=== PATIENT | female | born 1940 | race African-American/Black ===

== ENCOUNTER 2016-11-11 15:11 | Outpatient (RCR) | payer MEDICARE ==
--- OUTSIDE RECORDS SUMMARY | 2016-08-14 09:39 | XMS REPORT | Continuity of Care Document ---
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 Name Role Phone LOPEZ DONOHUE MD PCP Insurance Providers Payer Name Policy Number Subscriber Name Relationship [employer] Gold Choice [id number] Ely Tompkins 19 Self / Same As Patient Advance Directives Directive Response Recorded Date/Time Advance Directives No 02/01/15 7:45am Health Care Power of Rehabilitation Services Aide No 02/01/15 7:45am Organ Donor Yes 02/01/15 7:45am Resuscitation Status Full Code 02/01/15 7:45am Problems Medical Problems Problem Onset Date Status Fracture of tibia AND fibula Unknown Active Medications Medication Dose Route Sig Days/Qty Instructions Order Date Discontinued Date Status Salmeterol Xinafoate/Fluticasone 2 Puff IH TWICE A DAY 2 PUFFS Active Montelukast Sodium 10 Mg PO DAILY 08/30/10 01/04/11 Discontinued Fluticasone Propionate 2 Sprays NS DAILY 08/30/10 Active Donna-3 Fatty Acids/Fish Oil 1 Each PO DAILY 08/30/10 01/29/15 Discontinued Cholecalciferol 1,000 Unit PO DAILY 08/30/10 Active Multivitamins 1 Tab PO DAILY 08/30/10 Active Vitamin B Complex 1 Cap PO DAILY 08/30/10 01/29/15 Discontinued Ascorbic Acid 250 Mg PO DAILY 08/30/10 01/29/15 Discontinued Lisinopril (Zestril) 1 Each PO DAILY 08/30/10 01/04/11 Discontinued Cetirizine Hcl 10 Mg PO DAILY 08/30/10 Active Albuterol 2 Two [place] IH NEEDED 08/30/10 Active Omeprazole 20 Mg PO DAILY 08/30/10 Active Prednisone 50 Mg PO DAILY 5 Days 01/04/11 02/09/12 Discontinued Potassium Chloride 1 Each PO DAILY 02/09/12 01/29/15 Discontinued Lisinopril 10 Mg PO DAILY 02/09/12 01/29/15 Discontinued Acetaminophen/Hydrocodone Bitart 1-2 Each PO EVERY 6 HOURS PRN PAIN 30 Qty 10/01/13 01/29/15 Discontinued Tramadol Hcl 100 Mg PO EVERY 12 HOURS For Pain 30 Qty 02/01/15 Active Social History Social History Problem Response Recorded Date/Time Alcohol Use Denies Use 02/01/2015 7:45am Recreational Drug Use No 02/01/2015 7:45am Recent Foreign Travel No 10/01/2013 10:38am Sexually Transmitted Disease No 01/29/2015 12:44pm HIV/AIDS No 01/29/2015 12:44pm Smoking Status Never a Smoker 02/01/2015 7:47am Query Response Start Date Stop Date Smoking Status Never a Smoker Hospital Discharge Instructions No hospital discharge instructions. Plan of Care No plan of care. Functional Status Query Response Date Recorded Patient Orientation Person Place Time Situation February 01, 2015 2:57pm Allergies, Adverse Reactions, Alerts Allergen Type Severity Reaction Status Last Updated Codeine Allergy Unknown N/V Active 02/01/15 azithromycin ([id number]) Allergy Mild HIVES Active 01/04/11 procaine ([id number]) Allergy Unknown RASH Active 02/01/15 strawberry ([id number]) Allergy Unknown RASH Active 02/01/15 Immunizations Name Given Type Date of Pneumonia Vaccine 08/02/13 Historical Date of Influenza Vaccine 08/02/13 Historical Vital Signs Acute Vital Signs Vital Response Date/Time Temperature (Fahrenheit) 97.7 degrees F (97.6 - 99.5) Temperature (Calculated Celsius) 36.25727 degrees C (36.4 - 37.5) Temperature Source Temporal Pulse Rate (adult) 64 bpm (60 - 90) Respiratory Rate 16 bpm (12 - 24) O2 Sat by Pulse Oximetry 95 % (88 - 100) Blood Pressure 178/91 mm Hg Pain Pain Intensity 1 Height (Feet) 5 feet Height (Inches) 2.00 inches Height (Calculated Centimeters) 157.546925 cm Weight (Pounds) 168 pounds Weight (Calculated Grams) 66194.519 gm Weight (Calculated Kilograms) 76.801646 kilograms Calculated BMI 27.95 Results No known relevant diagnostic tests, laboratory data and/or discharge summary. Procedures Procedure Status Date Provider(s) BX BREAST 1ST LESION US IMAG completed 01/18/15 SYLVIA SAMUEL MD Lumpectomy of breast with sentinel node biopsy completed 02/01/15 REBECA DUPREE MD Encounters Encounter Location Date/Time Registered Surgical Day [facility] 02/01/15 6:54am Registered Clinic [facility] 01/29/15 6:06am Registered Clinic [facility] 01/18/15 12:34pm Registered Clinic [facility] 01/10/15 8:25am
[2016-08-14 09:48] LABS: BASOPHILS % (AUTO) 1 % (0-10); EOSINOPHILS # (AUTO) 0.2 10^3/uL (0.0-0.3); EOSINOPHILS % (AUTO) 4 % (0-10); LYMPHOCYTES # (AUTO) 1.1 X 10^3 (1.0-4.0); LYMPHOCYTES % (AUTO) 16 % (12-44); MEAN CORPUSCULAR HEMOGLOBIN 29 PG (25-34); MEAN CORPUSCULAR HGB CONC 33 G/DL (32-36); MEAN CORPUSCULAR VOLUME 87 FL (80-99); MEAN PLATELET VOLUME 9.3 FL (7.4-10.4); MONOCYTES # (AUTO) 0.4 X 10^3 (0.0-1.0); MONOCYTES % (AUTO) 6 % (0-12); NEUTROPHILS % (AUTO) 74 % (42-75); PLATELET COUNT 254 10^3/uL (130-400); RED BLOOD COUNT 4.13 10^6/uL (4.35-5.85); RED CELL DISTRIBUTION WIDTH 13.1 % (10.0-14.5); WHITE BLOOD COUNT 6.8 10^3/uL (4.3-11.0)
[2016-08-14 10:58] LABS: ALANINE AMINOTRANSFERASE 17 U/L (0-55); ALBUMIN 3.8 G/DL (3.2-4.5); ANION GAP 11 MMOL/L (5-14); ASPARTATE AMINO TRANSFERASE 17 U/L (5-34); BILIRUBIN,TOTAL 0.4 MG/DL (0.1-1.0); BLOOD UREA NITROGEN 10 MG/DL (7-18); BUN/CREATININE RATIO 13; CALCIUM 8.8 MG/DL (8.5-10.1); CARBON DIOXIDE 24 MMOL/L (21-32); CHLORIDE 108 MMOL/L (98-107); CREATININE SERUM 0.78 MG/DL (0.60-1.30); GFR ESTIMATED > 60; GLUCOSE 220 MG/DL (70-105); POTASSIUM 3.6 MMOL/L (3.6-5.0); SODIUM 143 MMOL/L (135-145); TOTAL PROTEIN 6.9 G/DL (6.4-8.2)
[2016-11-10 10:05] LABS: BASOPHILS % (AUTO) 0 % (0-10); EOSINOPHILS # (AUTO) 0.4 10^3/uL (0.0-0.3); EOSINOPHILS % (AUTO) 5 % (0-10); LYMPHOCYTES # (AUTO) 1.4 X 10^3 (1.0-4.0); LYMPHOCYTES % (AUTO) 19 % (12-44); MEAN CORPUSCULAR HEMOGLOBIN 29 PG (25-34); MEAN CORPUSCULAR HGB CONC 33 G/DL (32-36); MEAN CORPUSCULAR VOLUME 86 FL (80-99); MEAN PLATELET VOLUME 9.3 FL (7.4-10.4); MONOCYTES # (AUTO) 0.5 X 10^3 (0.0-1.0); MONOCYTES % (AUTO) 7 % (0-12); NEUTROPHILS # (AUTO) 4.9 X 10^3 (1.8-7.8); NEUTROPHILS % (AUTO) 68 % (42-75); PLATELET COUNT 240 10^3/uL (130-400); RED BLOOD COUNT 4.35 10^6/uL (4.35-5.85); RED CELL DISTRIBUTION WIDTH 13.1 % (10.0-14.5); WHITE BLOOD COUNT 7.1 10^3/uL (4.3-11.0)
[2016-11-10 10:31] LABS: ALANINE AMINOTRANSFERASE 15 U/L (0-55); ALBUMIN 3.8 G/DL (3.2-4.5); ANION GAP 9 MMOL/L (5-14); ASPARTATE AMINO TRANSFERASE 16 U/L (5-34); BILIRUBIN,TOTAL 0.5 MG/DL (0.1-1.0); BLOOD UREA NITROGEN 11 MG/DL (7-18); BUN/CREATININE RATIO 14; CALCIUM 8.7 MG/DL (8.5-10.1); CARBON DIOXIDE 25 MMOL/L (21-32); CHLORIDE 108 MMOL/L (98-107); CREATININE SERUM 0.79 MG/DL (0.60-1.30); GFR ESTIMATED > 60; GLUCOSE 136 MG/DL (70-105); POTASSIUM 3.4 MMOL/L (3.6-5.0); SODIUM 142 MMOL/L (135-145); TOTAL PROTEIN 6.9 G/DL (6.4-8.2)
[~2016-11-11 15:11] MED LIST: ACHD5005 PO; ALBU17AE3 IH; C250T PO; CETI10CA PO; CHOL10003 PO; FLUT12AE4 IH; FLUT16SP22 NS; HYDR-1231 PO; LISI10TA PO; LISI20TA PO; LISIN; MNTL10T PO; MULT-608 PO; OMEG1CAP51 PO; OMEP20TA2 PO; POTA20PA3 PO; PRD50T PO; TRAM-21 PO; VITA1CAP59 PO
== END 2016-11-12 | disposition home or self-care (01) ==
LOC: ONC 15:11
PROVIDERS: ATTEND Internal Medicine Hematology & Oncology
DX: D05.92 Unspecified type of carcinoma in situ of left breast (principal); D50.0 Iron deficiency anemia secondary to blood loss (chronic); Z85.3 Personal history of malignant neoplasm of breast; Z90.11 Acquired absence of right breast and nipple; Z79.899 Other long term (current) drug therapy; Z92.21 Personal history of antineoplastic chemotherapy; Z92.3 Personal history of irradiation
CPT/HCPCS: 36415; 80053; 82728; 85025; 99213

== ENCOUNTER 2017-05-07 15:15 | Outpatient (RCR) | payer MEDICARE ==
[2017-05-06 11:47] LABS: BASOPHILS % (AUTO) 0 % (0-10); EOSINOPHILS # (AUTO) 0.5 10^3/uL (0.0-0.3); EOSINOPHILS % (AUTO) 6 % (0-10); LYMPHOCYTES # (AUTO) 1.7 X 10^3 (1.0-4.0); LYMPHOCYTES % (AUTO) 23 % (12-44); MEAN CORPUSCULAR HEMOGLOBIN 28 PG (25-34); MEAN CORPUSCULAR HGB CONC 33 G/DL (32-36); MEAN CORPUSCULAR VOLUME 87 FL (80-99); MEAN PLATELET VOLUME 9.1 FL (7.4-10.4); MONOCYTES # (AUTO) 0.6 X 10^3 (0.0-1.0); MONOCYTES % (AUTO) 8 % (0-12); NEUTROPHILS # (AUTO) 4.5 X 10^3 (1.8-7.8); NEUTROPHILS % (AUTO) 62 % (42-75); PLATELET COUNT 263 10^3/uL (130-400); RED BLOOD COUNT 4.01 10^6/uL (4.35-5.85); RED CELL DISTRIBUTION WIDTH 13.3 % (10.0-14.5); WHITE BLOOD COUNT 7.3 10^3/uL (4.3-11.0)
[2017-05-06 12:44] LABS: ALANINE AMINOTRANSFERASE 12 U/L (0-55); ALBUMIN 3.7 GM/DL (3.2-4.5); ANION GAP 7 MMOL/L (5-14); ASPARTATE AMINO TRANSFERASE 16 U/L (5-34); BILIRUBIN,TOTAL 0.4 MG/DL (0.1-1.0); BLOOD UREA NITROGEN 21 MG/DL (7-18); BUN/CREATININE RATIO 25; CALCIUM 8.8 MG/DL (8.5-10.1); CARBON DIOXIDE 27 MMOL/L (21-32); CHLORIDE 109 MMOL/L (98-107); CREATININE SERUM 0.83 MG/DL (0.60-1.30); GFR ESTIMATED > 60; GLUCOSE 82 MG/DL (70-105); POTASSIUM 3.4 MMOL/L (3.6-5.0); SODIUM 143 MMOL/L (135-145); TOTAL PROTEIN 7.2 GM/DL (6.4-8.2)
== END 2017-08-01 | disposition home or self-care (01) ==
LOC: ONC 15:15
PROVIDERS: ATTEND Internal Medicine Hematology & Oncology
DX: D05.92 Unspecified type of carcinoma in situ of left breast (principal); D50.0 Iron deficiency anemia secondary to blood loss (chronic); Z85.3 Personal history of malignant neoplasm of breast; Z90.11 Acquired absence of right breast and nipple; Z79.899 Other long term (current) drug therapy; Z92.21 Personal history of antineoplastic chemotherapy; Z92.3 Personal history of irradiation
CPT/HCPCS: 36415; 80053; 82728; 85025; 99213

== ENCOUNTER → 2017-10-22 | Outpatient (CLI) | payer MEDICARE ==
--- NOTE | 2017-10-23 09:36 | Diagnostic Imaging Report ---
Left breast screening mammogram with tomography evaluation. CAD is utilized. Indication screening exam. The patient had a right mastectomy 2009 for breast cancer. Comparison 10/21/2016. Findings: The left breast is composed of suggested dense parenchyma which may decrease mammographic sensitivity. Surgical clips in the medial aspect of the left breast is noted. The patient has had a right mastectomy in 2009. Allowing for technique and positional differences, no suspicious change is seen. IMPRESSION: No significant change. ACR BI-RADS Category 2: Benign findings. Result letter will be mailed to the patient. Note: At least 10% of breast cancer is not imaged by mammography. Dictated by: Dictated on workstation # [id number]
== END ==
LOC: RAD 09:12
PROVIDERS: ATTEND Nurse Practitioner Adult Health
DX: Z12.31 Encounter for screening mammogram for malignant neoplasm of breast (principal); C50.211 Malignant neoplasm of upper-inner quadrant of right female breast

== ENCOUNTER 2017-11-16 09:01 | Outpatient (RCR) | payer MEDICARE ==
[2017-11-09 10:00] LABS: HEMOGLOBIN 10.9 G/DL (11.5-16.0); MEAN CORPUSCULAR HEMOGLOBIN 28 PG (25-34); RED BLOOD COUNT 3.87 10^6/uL (4.35-5.85); WHITE BLOOD COUNT 7.4 10^3/uL (4.3-11.0)
[2017-11-09 10:01] LABS: BASOPHILS % (AUTO) 0 % (0-10); EOSINOPHILS % (AUTO) 5 % (0-10); HEMATOCRIT 35 % (35-52); LYMPHOCYTES % (AUTO) 18 % (12-44); MEAN CORPUSCULAR HGB CONC 31 G/DL (32-36); MEAN CORPUSCULAR VOLUME 91 FL (80-99); MEAN PLATELET VOLUME 10.1 FL (7.4-10.4); MONOCYTES % (AUTO) 5 % (0-12); NEUTROPHILS % (AUTO) 72 % (42-75); PLATELET COUNT 233 10^3/uL (130-400); RED CELL DISTRIBUTION WIDTH 13.2 % (10.0-14.5)
[2017-11-09 10:02] LABS: EOSINOPHILS # (AUTO) 0.4 10^3/uL (0.0-0.3); LYMPHOCYTES # (AUTO) 1.3 X 10^3 (1.0-4.0); MONOCYTES # (AUTO) 0.4 X 10^3 (0.0-1.0); NEUTROPHILS # (AUTO) 5.3 X 10^3 (1.8-7.8)
[2017-11-09 10:08] LABS: ALANINE AMINOTRANSFERASE 16 U/L (0-55); ALBUMIN 3.5 GM/DL (3.2-4.5); ALKALINE PHOSPHATASE 87 U/L (40-136); BILIRUBIN,TOTAL 0.6 MG/DL (0.1-1.0); BUN/CREATININE RATIO 18; CALCIUM 8.8 MG/DL (8.5-10.1); CARBON DIOXIDE 27 MMOL/L (21-32); CHLORIDE 106 MMOL/L (98-107); CREATININE SERUM 0.85 MG/DL (0.60-1.30); GFR ESTIMATED > 60; GLUCOSE 171 MG/DL (70-105); POTASSIUM 3.3 MMOL/L (3.6-5.0); SODIUM 143 MMOL/L (135-145); TOTAL PROTEIN 7.1 GM/DL (6.4-8.2)
== END 2018-02-07 | disposition home or self-care (01) ==
LOC: ONC 09:01
PROVIDERS: ATTEND Internal Medicine Hematology & Oncology
DX: D05.92 Unspecified type of carcinoma in situ of left breast (principal); D50.0 Iron deficiency anemia secondary to blood loss (chronic); Z85.3 Personal history of malignant neoplasm of breast; Z90.11 Acquired absence of right breast and nipple; Z79.899 Other long term (current) drug therapy; Z92.21 Personal history of antineoplastic chemotherapy; Z92.3 Personal history of irradiation
CPT/HCPCS: 80053; 82728; 85025; 99213

== ENCOUNTER → 2018-05-03 | Outpatient (CLI) | payer MEDICARE | LOC: LAB 09:36 | PROVIDERS: ATTEND Internal Medicine | DX: E88.81 Metabolic syndrome and other insulin resistance (principal) | CPT/HCPCS: 36415; 83036 ==

== ENCOUNTER 2018-05-10 09:04 | Outpatient (RCR) | payer MEDICARE ==
[2018-05-03 09:56] LABS: BASOPHILS % (AUTO) 1 % (0-10); EOSINOPHILS # (AUTO) 0.3 10^3/uL (0.0-0.3); EOSINOPHILS % (AUTO) 4 % (0-10); HEMATOCRIT 34 % (35-52); HEMOGLOBIN 11.5 G/DL (11.5-16.0); LYMPHOCYTES # (AUTO) 1.5 X 10^3 (1.0-4.0); LYMPHOCYTES % (AUTO) 19 % (12-44); MEAN CORPUSCULAR HEMOGLOBIN 29 PG (25-34); MEAN CORPUSCULAR HGB CONC 33 G/DL (32-36); MEAN CORPUSCULAR VOLUME 88 FL (80-99); MONOCYTES # (AUTO) 0.5 X 10^3 (0.0-1.0); MONOCYTES % (AUTO) 6 % (0-12); NEUTROPHILS # (AUTO) 5.5 X 10^3 (1.8-7.8); NEUTROPHILS % (AUTO) 71 % (42-75); PLATELET COUNT 247 10^3/uL (130-400); RED BLOOD COUNT 3.92 10^6/uL (4.35-5.85); RED CELL DISTRIBUTION WIDTH 13.1 % (10.0-14.5); WHITE BLOOD COUNT 7.8 10^3/uL (4.3-11.0)
[2018-05-03 10:09] LABS: ALANINE AMINOTRANSFERASE 15 U/L (0-55); ALBUMIN 3.9 GM/DL (3.2-4.5); ALKALINE PHOSPHATASE 89 U/L (40-136); BILIRUBIN,TOTAL 0.5 MG/DL (0.1-1.0); BUN/CREATININE RATIO 20; CALCIUM 9.1 MG/DL (8.5-10.1); CARBON DIOXIDE 24 MMOL/L (21-32); CHLORIDE 110 MMOL/L (98-107); CREATININE SERUM 0.83 MG/DL (0.60-1.30); GFR ESTIMATED > 60; GLUCOSE 111 MG/DL (70-105); POTASSIUM 3.7 MMOL/L (3.6-5.0); SODIUM 143 MMOL/L (135-145); TOTAL PROTEIN 7.4 GM/DL (6.4-8.2)
== END 2018-06-01 | disposition home or self-care (01) ==
LOC: ONC 09:04
PROVIDERS: ATTEND Internal Medicine Hematology & Oncology
DX: D05.92 Unspecified type of carcinoma in situ of left breast (principal); D50.0 Iron deficiency anemia secondary to blood loss (chronic); Z85.3 Personal history of malignant neoplasm of breast; Z90.11 Acquired absence of right breast and nipple; Z79.899 Other long term (current) drug therapy; Z92.21 Personal history of antineoplastic chemotherapy; Z92.3 Personal history of irradiation
CPT/HCPCS: 36415; 80053; 82728; 85025; 99213

== ENCOUNTER → 2018-10-28 | Outpatient (CLI) | payer MEDICARE ==
--- NOTE | 2018-10-28 12:39 | Diagnostic Imaging Report ---
INDICATION: Routine screening. Comparison is made with prior left mammogram from 10/22/2017 and 10/21/2016. 2-D and 3-D unilateral left screening mammography was performed with CAD. Scattered fibroglandular densities are identified bilaterally. Surgical clips in medial left breast are again noted. The parenchymal pattern appears to be stable. No mass or malignant appearing microcalcifications are seen. Left axilla is unremarkable. Impression: BI-RADS category 2 No mammographic features suspicious for malignancy are identified. ACR BI-RADS Category 2: Benign findings. Result letter will be mailed to the patient. Note: At least 10% of breast cancer is not imaged by mammography. Dictated by: Dictated on workstation # [id number]
== END ==
LOC: RAD 07:16
PROVIDERS: ATTEND Nurse Practitioner Adult Health
DX: Z12.31 Encounter for screening mammogram for malignant neoplasm of breast (principal); C50.211 Malignant neoplasm of upper-inner quadrant of right female breast

== ENCOUNTER → 2018-11-10 | Outpatient (CLI) | payer MEDICARE | LOC: LAB 09:37 | PROVIDERS: ATTEND Internal Medicine | DX: E11.65 Type 2 diabetes mellitus with hyperglycemia (principal) | CPT/HCPCS: 36415; 83036 ==

== ENCOUNTER 2018-11-11 09:03 | Outpatient (RCR) | payer MEDICARE ==
[2018-11-10 09:56] LABS: BASOPHILS % (AUTO) 0 % (0-10); EOSINOPHILS # (AUTO) 0.2 10^3/uL (0.0-0.3); EOSINOPHILS % (AUTO) 4 % (0-10); HEMATOCRIT 33 % (35-52); HEMOGLOBIN 10.7 G/DL (11.5-16.0); LYMPHOCYTES # (AUTO) 1.4 X 10^3 (1.0-4.0); LYMPHOCYTES % (AUTO) 21 % (12-44); MEAN CORPUSCULAR HEMOGLOBIN 28 PG (25-34); MEAN CORPUSCULAR HGB CONC 32 G/DL (32-36); MEAN CORPUSCULAR VOLUME 88 FL (80-99); MEAN PLATELET VOLUME 10.1 FL (7.4-10.4); MONOCYTES # (AUTO) 0.5 X 10^3 (0.0-1.0); MONOCYTES % (AUTO) 7 % (0-12); NEUTROPHILS # (AUTO) 4.7 X 10^3 (1.8-7.8); NEUTROPHILS % (AUTO) 68 % (42-75); PLATELET COUNT 261 10^3/uL (130-400); RED CELL DISTRIBUTION WIDTH 12.9 % (10.0-14.5); WHITE BLOOD COUNT 6.8 10^3/uL (4.3-11.0)
[2018-11-10 10:24] LABS: ALANINE AMINOTRANSFERASE 15 U/L (0-55); ALBUMIN 3.8 GM/DL (3.2-4.5); ALKALINE PHOSPHATASE 90 U/L (40-136); BILIRUBIN,TOTAL 0.5 MG/DL (0.1-1.0); BUN/CREATININE RATIO 24; CALCIUM 9.3 MG/DL (8.5-10.1); CARBON DIOXIDE 27 MMOL/L (21-32); CHLORIDE 107 MMOL/L (98-107); CREATININE SERUM 0.88 MG/DL (0.60-1.30); GFR ESTIMATED > 60; GLUCOSE 111 MG/DL (70-105); POTASSIUM 3.8 MMOL/L (3.6-5.0); SODIUM 142 MMOL/L (135-145); TOTAL PROTEIN 7.3 GM/DL (6.4-8.2)
== END 2019-02-08 | disposition home or self-care (01) ==
LOC: ONC 09:03
PROVIDERS: ATTEND Internal Medicine Hematology & Oncology
DX: D05.92 Unspecified type of carcinoma in situ of left breast (principal); D50.0 Iron deficiency anemia secondary to blood loss (chronic); Z85.3 Personal history of malignant neoplasm of breast; Z90.11 Acquired absence of right breast and nipple; Z79.899 Other long term (current) drug therapy; Z92.21 Personal history of antineoplastic chemotherapy; Z92.3 Personal history of irradiation
CPT/HCPCS: 36415; 80053; 82728; 83540; 85025; 99213

== ENCOUNTER 2019-05-11 08:33 | Outpatient (RCR) | payer MEDICARE ==
[2019-05-11 09:22] LABS: BASOPHILS % (AUTO) 0 % (0-10); EOSINOPHILS # (AUTO) 0.4 10^3/uL (0.0-0.3); EOSINOPHILS % (AUTO) 7 % (0-10); HEMATOCRIT 34 % (35-52); LYMPHOCYTES # (AUTO) 1.3 X 10^3 (1.0-4.0); LYMPHOCYTES % (AUTO) 20 % (12-44); MEAN CORPUSCULAR HEMOGLOBIN 28 PG (25-34); MEAN CORPUSCULAR HGB CONC 32 G/DL (32-36); MEAN CORPUSCULAR VOLUME 88 FL (80-99); MEAN PLATELET VOLUME 9.6 FL (7.4-10.4); MONOCYTES # (AUTO) 0.4 X 10^3 (0.0-1.0); MONOCYTES % (AUTO) 6 % (0-12); NEUTROPHILS # (AUTO) 4.5 X 10^3 (1.8-7.8); NEUTROPHILS % (AUTO) 68 % (42-75); PLATELET COUNT 258 10^3/uL (130-400); RED CELL DISTRIBUTION WIDTH 12.9 % (10.0-14.5); WHITE BLOOD COUNT 6.7 10^3/uL (4.3-11.0)
[2019-05-11 09:40] LABS: ALANINE AMINOTRANSFERASE 14 U/L (0-55); ALBUMIN 3.7 GM/DL (3.2-4.5); ALKALINE PHOSPHATASE 94 U/L (40-136); BILIRUBIN,TOTAL 0.5 MG/DL (0.1-1.0); BUN/CREATININE RATIO 19; CALCIUM 9.1 MG/DL (8.5-10.1); CARBON DIOXIDE 25 MMOL/L (21-32); CHLORIDE 107 MMOL/L (98-107); CREATININE SERUM 0.89 MG/DL (0.60-1.30); GFR ESTIMATED > 60; GLUCOSE 112 MG/DL (70-105); POTASSIUM 4.2 MMOL/L (3.6-5.0); SODIUM 142 MMOL/L (135-145)
== END 2019-08-09 | disposition home or self-care (01) ==
LOC: ONC 08:33
PROVIDERS: ATTEND Internal Medicine Hematology & Oncology
DX: D05.92 Unspecified type of carcinoma in situ of left breast (principal); D50.0 Iron deficiency anemia secondary to blood loss (chronic); Z85.3 Personal history of malignant neoplasm of breast; Z90.11 Acquired absence of right breast and nipple; Z79.899 Other long term (current) drug therapy; Z92.21 Personal history of antineoplastic chemotherapy; Z92.3 Personal history of irradiation
CPT/HCPCS: 36415; 80053; 82728; 85025; 99213

== ENCOUNTER → 2019-05-11 | Outpatient (CLI) | payer MEDICARE ==
[2019-05-11 09:41] LABS: CHOLESTEROL 234 MG/DL (< 200); HDL CHOLESTEROL 64 MG/DL (40-60); TRIGLYCERIDES 100 MG/DL (<150); VLDL CHOLESTEROL 20 MG/DL (5-40)
== END ==
LOC: LAB 08:31
PROVIDERS: ATTEND Internal Medicine
DX: E11.9 Type 2 diabetes mellitus without complications (principal); I10 Essential (primary) hypertension
CPT/HCPCS: 36415; 80061; 83036

== ENCOUNTER 2019-10-28 12:44 | Outpatient (RCR) | payer MEDICARE ==
[2019-10-28 13:12] LABS: BASOPHILS % (AUTO) 0 % (0-10); EOSINOPHILS # (AUTO) 0.4 10^3/uL (0.0-0.3); EOSINOPHILS % (AUTO) 5 % (0-10); HEMATOCRIT 34 % (35-52); HEMOGLOBIN 11.2 G/DL (11.5-16.0); LYMPHOCYTES # (AUTO) 1.7 X 10^3 (1.0-4.0); LYMPHOCYTES % (AUTO) 21 % (12-44); MEAN CORPUSCULAR HEMOGLOBIN 29 PG (25-34); MEAN CORPUSCULAR HGB CONC 33 G/DL (32-36); MEAN CORPUSCULAR VOLUME 88 FL (80-99); MEAN PLATELET VOLUME 9.8 FL (7.4-10.4); MONOCYTES # (AUTO) 0.5 X 10^3 (0.0-1.0); MONOCYTES % (AUTO) 6 % (0-12); NEUTROPHILS # (AUTO) 5.6 X 10^3 (1.8-7.8); NEUTROPHILS % (AUTO) 69 % (42-75); PLATELET COUNT 257 10^3/uL (130-400); RED CELL DISTRIBUTION WIDTH 13.2 % (10.0-14.5); WHITE BLOOD COUNT 8.1 10^3/uL (4.3-11.0)
[2019-10-28 13:36] LABS: ALANINE AMINOTRANSFERASE 14 U/L (0-55); ALBUMIN 3.9 GM/DL (3.2-4.5); ALKALINE PHOSPHATASE 95 U/L (40-136); BILIRUBIN,TOTAL 0.4 MG/DL (0.1-1.0); BUN/CREATININE RATIO 24; CALCIUM 8.4 MG/DL (8.5-10.1); CARBON DIOXIDE 21 MMOL/L (21-32); CHLORIDE 109 MMOL/L (98-107); CREATININE SERUM 0.93 MG/DL (0.60-1.30); GFR ESTIMATED > 60; GLUCOSE 131 MG/DL (70-105); POTASSIUM 3.4 MMOL/L (3.6-5.0); SODIUM 141 MMOL/L (135-145); TOTAL PROTEIN 7.4 GM/DL (6.4-8.2)
== END 2019-11-09 08:51 | disposition home or self-care (01) ==
LOC: ONC 12:44
PROVIDERS: ATTEND Internal Medicine Hematology & Oncology
DX: D05.10 Intraductal carcinoma in situ of unspecified breast (principal); D50.0 Iron deficiency anemia secondary to blood loss (chronic)
CPT/HCPCS: 80053; 82728; 85025

== ENCOUNTER → 2019-10-28 | Outpatient (CLI) | payer MEDICARE ==
[2019-10-28 13:37] LABS: CHOLESTEROL 238 MG/DL (< 200); HDL CHOLESTEROL 60 MG/DL (40-60); TRIGLYCERIDES 271 MG/DL (<150); VLDL CHOLESTEROL 54 MG/DL (5-40)
== END ==
LOC: LAB 12:55
PROVIDERS: ATTEND Internal Medicine
DX: Z13.6 Encounter for screening for cardiovascular disorders (principal); E11.9 Type 2 diabetes mellitus without complications
CPT/HCPCS: 36415; 80061; 83036

== ENCOUNTER → 2019-10-31 | Outpatient (CLI) | payer MEDICARE ==
--- NOTE | 2019-10-31 13:26 | Diagnostic Imaging Report ---
INDICATION: Routine screening. COMPARISON: 10/28/2018 and 10/22/2017. TECHNIQUE: 2D and 3D unilateral left screening mammography was performed with CAD. FINDINGS: The left breast is heterogeneously dense, limiting the sensitivity of mammography. Post-therapeutic changes in the medial left breast are again noted with multiple surgical clips present. No mass or malignant appearing microcalcifications are seen. The left axilla is unremarkable. IMPRESSION: No mammographic features suspicious for malignancy are identified. ACR BI-RADS Category 2: Benign findings. Result letter will be mailed to the patient. Note: At least 10% of breast cancer is not imaged by mammography. Dictated by: Dictated on workstation # [id number]
== END ==
LOC: RAD 09:01
PROVIDERS: ATTEND Nurse Practitioner Adult Health
DX: Z12.31 Encounter for screening mammogram for malignant neoplasm of breast (principal); Z85.3 Personal history of malignant neoplasm of breast

== ENCOUNTER → 2019-11-09 | Outpatient (CLI) | payer MEDICARE | LOC: ONC 08:56 | PROVIDERS: ATTEND Internal Medicine Hematology & Oncology | DX: D50.0 Iron deficiency anemia secondary to blood loss (chronic) (principal); D05.12 Intraductal carcinoma in situ of left breast; C50.211 Malignant neoplasm of upper-inner quadrant of right female breast; I10 Essential (primary) hypertension; J45.909 Unspecified asthma, uncomplicated | CPT/HCPCS: 99213 ==

== ENCOUNTER → 2020-05-01 | Outpatient (CLI) | payer MEDICARE ==
[2020-05-01 09:31] LABS: BASOPHILS % (AUTO) 0 % (0-10); EOSINOPHILS # (AUTO) 0.4 10^3/uL (0.0-0.3); EOSINOPHILS % (AUTO) 6 % (0-10); HEMATOCRIT 33 % (35-52); HEMOGLOBIN 10.7 G/DL (11.5-16.0); LYMPHOCYTES # (AUTO) 1.5 X 10^3 (1.0-4.0); LYMPHOCYTES % (AUTO) 20 % (12-44); MEAN CORPUSCULAR HEMOGLOBIN 29 PG (25-34); MEAN CORPUSCULAR HGB CONC 33 G/DL (32-36); MEAN CORPUSCULAR VOLUME 88 FL (80-99); MEAN PLATELET VOLUME 9.5 FL (7.4-10.4); MONOCYTES # (AUTO) 0.5 X 10^3 (0.0-1.0); MONOCYTES % (AUTO) 7 % (0-12); NEUTROPHILS # (AUTO) 4.8 X 10^3 (1.8-7.8); NEUTROPHILS % (AUTO) 67 % (42-75); PLATELET COUNT 258 10^3/uL (130-400); RED CELL DISTRIBUTION WIDTH 12.9 % (10.0-14.5); WHITE BLOOD COUNT 7.2 10^3/uL (4.3-11.0)
[2020-05-01 09:50] LABS: ALANINE AMINOTRANSFERASE 14 U/L (0-55); ALBUMIN 3.7 GM/DL (3.2-4.5); ALKALINE PHOSPHATASE 94 U/L (40-136); BILIRUBIN,TOTAL 0.4 MG/DL (0.1-1.0); BUN/CREATININE RATIO 22; CALCIUM 8.8 MG/DL (8.5-10.1); CARBON DIOXIDE 22 MMOL/L (21-32); CHLORIDE 107 MMOL/L (98-107); CREATININE SERUM 0.99 MG/DL (0.60-1.30); GFR ESTIMATED > 60; GLUCOSE 104 MG/DL (70-105); POTASSIUM 4.1 MMOL/L (3.6-5.0); SODIUM 139 MMOL/L (135-145); TOTAL PROTEIN 7.4 GM/DL (6.4-8.2)
== END ==
LOC: ONC 09:06
PROVIDERS: ATTEND Internal Medicine Hematology & Oncology
DX: D50.0 Iron deficiency anemia secondary to blood loss (chronic) (principal); D05.12 Intraductal carcinoma in situ of left breast
CPT/HCPCS: 80053; 82728; 85025

== ENCOUNTER → 2020-05-07 | Outpatient (CLI) | payer MEDICARE ==
[2020-05-07 10:26] LABS: CHOLESTEROL 247 MG/DL (< 200); HDL CHOLESTEROL 57 MG/DL (40-60); TRIGLYCERIDES 159 MG/DL (<150); VLDL CHOLESTEROL 32 MG/DL (5-40)
== END ==
LOC: LAB 05-01 09:19
PROVIDERS: ATTEND Nurse Practitioner Family
DX: E11.9 Type 2 diabetes mellitus without complications (principal); I10 Essential (primary) hypertension
CPT/HCPCS: 36415; 80061; 83036

== ENCOUNTER → 2020-05-07 | Outpatient (CLI) | payer MEDICARE | LOC: ONC 09:01 | PROVIDERS: ATTEND Internal Medicine Hematology & Oncology | DX: D05.12 Intraductal carcinoma in situ of left breast (principal); D50.0 Iron deficiency anemia secondary to blood loss (chronic); I10 Essential (primary) hypertension; Z85.3 Personal history of malignant neoplasm of breast; Z92.21 Personal history of antineoplastic chemotherapy; Z92.3 Personal history of irradiation; Z90.11 Acquired absence of right breast and nipple | CPT/HCPCS: 99213 ==

== ENCOUNTER → 2020-11-15 | Outpatient (CLI) | payer MEDICARE ==
--- NOTE | 2020-11-15 14:46 | Diagnostic Imaging Report ---
EXAM: Left screening mammogram COMPARISON: This study was compared to the prior exams of 10/31/2019, 10/28/2018, 10/22/2017 and 10/21/2016. By history, the patient underwent a right mastectomy for carcinoma in 2009. 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 The postsurgical changes involving the medial aspect of the left breast seen on the prior studies are again evident and no different. There is no sign of a current malignancy in this region. The fibroglandular tissue in the left breast is heterogeneously dense. This does limit the sensitivity of this exam. There is no primary or secondary sign of malignancy noted. IMPRESSION: The postsurgical changes involving the left breast appear stable. There is no evidence for malignancy. ACR category 1. ACR BI-RADS Category 1: Negative. Result letter will be mailed to the patient. Note: At least 10% of breast cancer is not imaged by mammography. Dictated by: Dictated on workstation # [id number]
== END ==
LOC: RAD 11:35
PROVIDERS: ATTEND Nurse Practitioner Adult Health
DX: Z12.31 Encounter for screening mammogram for malignant neoplasm of breast (principal)
CPT/HCPCS: 77063

== ENCOUNTER 2020-11-21 09:15 | Outpatient (RCR) | payer MEDICARE ==
[2020-11-06 11:40] LABS: BASOPHILS # (AUTO) 0.1 10^3/uL (0.0-0.1); BASOPHILS % (AUTO) 1 % (0-10); EOSINOPHILS # (AUTO) 0.3 10^3/uL (0.0-0.3); EOSINOPHILS % (AUTO) 4 % (0-10); HEMATOCRIT 33 % (35-52); HEMOGLOBIN 10.5 g/dL (11.5-16.0); LYMPHOCYTES # (AUTO) 1.6 10^3/uL (1.0-4.0); LYMPHOCYTES % (AUTO) 21 % (12-44); MEAN CORPUSCULAR HEMOGLOBIN 28 pg (25-34); MEAN CORPUSCULAR HGB CONC 32 g/dL (32-36); MEAN CORPUSCULAR VOLUME 90 fL (80-99); MEAN PLATELET VOLUME 9.9 fL (9.0-12.2); MONOCYTES # (AUTO) 0.5 10^3/uL (0.0-1.0); MONOCYTES % (AUTO) 7 % (0-12); NEUTROPHILS # (AUTO) 5.1 10^3/uL (1.8-7.8); NEUTROPHILS % (AUTO) 66 % (42-75); PLATELET COUNT 275 10^3/uL (130-400); WHITE BLOOD COUNT 7.7 10^3/uL (4.3-11.0)
[2020-11-06 12:02] LABS: ALBUMIN 3.7 GM/DL (3.2-4.5); BILIRUBIN,TOTAL 0.4 MG/DL (0.1-1.0); CALCIUM 8.7 MG/DL (8.5-10.1); CREATININE SERUM 1.37 MG/DL (0.60-1.30); POTASSIUM 3.3 MMOL/L (3.6-5.0); TOTAL PROTEIN 7.9 GM/DL (6.4-8.2)
[2020-11-21 09:39] LABS: BUN/CREATININE RATIO 15; CALCIUM 8.8 MG/DL (8.5-10.1); CARBON DIOXIDE 24 MMOL/L (21-32); CHLORIDE 108 MMOL/L (98-107); CREATININE SERUM 1.03 MG/DL (0.60-1.30); GFR ESTIMATED > 60; GLUCOSE 118 MG/DL (70-105); POTASSIUM 3.9 MMOL/L (3.6-5.0); SODIUM 142 MMOL/L (135-145)
== END 2021-02-04 | disposition home or self-care (01) ==
LOC: ONC 09:15
PROVIDERS: ATTEND Internal Medicine Hematology & Oncology
DX: C50.212 Malignant neoplasm of upper-inner quadrant of left female breast (principal); Z86.2 Personal history of diseases of the blood and blood-forming organs and certain disorders involving the immune mechanism; Z90.11 Acquired absence of right breast and nipple
CPT/HCPCS: 80048; 80053; 82728; 85025; 99213

== ENCOUNTER → 2021-05-13 | Outpatient (CLI) | payer MEDICARE ==
[2021-05-13 09:00] LABS: BASOPHILS % (AUTO) 0 % (0-10); EOSINOPHILS # (AUTO) 0.3 10^3/uL (0.0-0.3); EOSINOPHILS % (AUTO) 4 % (0-10); HEMATOCRIT 32 % (35-52); HEMOGLOBIN 10.3 g/dL (11.5-16.0); LYMPHOCYTES # (AUTO) 1.2 10^3/uL (1.0-4.0); LYMPHOCYTES % (AUTO) 17 % (12-44); MEAN CORPUSCULAR HEMOGLOBIN 29 pg (25-34); MEAN CORPUSCULAR HGB CONC 32 g/dL (32-36); MEAN CORPUSCULAR VOLUME 90 fL (80-99); MEAN PLATELET VOLUME 9.7 fL (9.0-12.2); MONOCYTES # (AUTO) 0.4 10^3/uL (0.0-1.0); MONOCYTES % (AUTO) 6 % (0-12); NEUTROPHILS # (AUTO) 5.4 10^3/uL (1.8-7.8); NEUTROPHILS % (AUTO) 73 % (42-75); PLATELET COUNT 246 10^3/uL (130-400); WHITE BLOOD COUNT 7.4 10^3/uL (4.3-11.0)
[2021-05-13 09:19] LABS: ALBUMIN 3.7 GM/DL (3.2-4.5); BILIRUBIN,TOTAL 0.4 MG/DL (0.1-1.0); CALCIUM 9.2 MG/DL (8.5-10.1); CREATININE SERUM 1.15 MG/DL (0.60-1.30); TOTAL PROTEIN 7.3 GM/DL (6.4-8.2)
== END ==
LOC: EDSTATUS 02-05 11:27 → ONC 08:36
PROVIDERS: ATTEND Internal Medicine Hematology & Oncology
DX: D05.12 Intraductal carcinoma in situ of left breast (principal); C50.211 Malignant neoplasm of upper-inner quadrant of right female breast; D50.0 Iron deficiency anemia secondary to blood loss (chronic); I00 Rheumatic fever without heart involvement; J45.909 Unspecified asthma, uncomplicated; Z92.3 Personal history of irradiation
CPT/HCPCS: 80053; 82728; 85025; G0463; 99213

== ENCOUNTER → 2021-11-21 | Outpatient (CLI) | payer MEDICARE ==
--- NOTE | 2021-11-21 13:17 | Diagnostic Imaging Report ---
INDICATION: Routine screening. COMPARISON is made with prior mammograms from 11/15/2020 and 10/31/2019. Unilateral left 2-D and 3-D screening mammography was performed with CAD. Scattered fibroglandular densities in the left breast are noted. Post-therapeutic changes in the medial left breast are noted where there are multiple surgical clips present. Calcifications in the left breast appear stable. No mass or malignant-appearing microcalcifications are seen. Left axilla is unremarkable. IMPRESSION: BI-RADS Category 2 No mammographic features suspicious for malignancy are identified. ACR BI-RADS Category 2: Benign findings. Result letter will be mailed to the patient. Note: At least 10% of breast cancer is not imaged by mammography. Dictated by: Dictated on workstation # [id number]
== END ==
LOC: RAD 09:00
PROVIDERS: ATTEND Internal Medicine Hematology & Oncology
DX: Z12.31 Encounter for screening mammogram for malignant neoplasm of breast (principal)
CPT/HCPCS: 77063

== ENCOUNTER → 2022-07-30 | Outpatient (CLI) | payer MEDICARE ==
[~2022-07-30] MED LIST changes: +CATHETER FLUSH 10 ML SYR IV PRN; +HOLD METFORMIN - RECEIVED CONTRAST 20 ML VIAL IV SCH; +IOHEXOL 350 MG/ML 100 ML (OMNIPAQUE 350) VIAL IV ONE; +NS 100 ML (IVPB) BAG IV ONE
--- NOTE | 2022-07-30 09:58 | Diagnostic Imaging Report ---
PROCEDURE: CT head with and without contrast. TECHNIQUE: Multiple contiguous axial images were obtained through the brain before and after the administration of intravenous contrast. Auto Exposure Controls were utilized during the CT exam to meet ALARA standards for radiation dose reduction. INDICATION: Acute confusion in a patient with breast cancer. FINDINGS: The ventricles and sulci are within normal limits for size. There is no evidence of intracranial hemorrhage. There is no abnormal mass effect or shift of the midline structures and no abnormal contrast enhancement is seen. Note is made of hyperostosis frontalis interna without other focal lytic or sclerotic calvarial lesion. There is extensive mucosal thickening throughout the paranasal sinuses. IMPRESSION: No acute intracranial abnormality or evidence of metastatic disease in the head. There is extensive chronic appearing pansinusitis. Dictated by: Dictated on workstation # [id number]
== END ==
LOC: RAD 09:02
PROVIDERS: ATTEND Internal Medicine
DX: R41.0 Disorientation, unspecified (principal); C50.919 Malignant neoplasm of unspecified site of unspecified female breast
CPT/HCPCS: 70470

== ENCOUNTER → 2022-12-22 | Outpatient (CLI) | payer MEDICARE ==
[~2022-12-22] MED LIST changes: -CATHETER FLUSH 10 ML SYR IV PRN; -HOLD METFORMIN - RECEIVED CONTRAST 20 ML VIAL IV SCH; -IOHEXOL 350 MG/ML 100 ML (OMNIPAQUE 350) VIAL IV ONE; -NS 100 ML (IVPB) BAG IV ONE
[2022-12-22 11:29] LABS: CALCIUM 8.7 MG/DL (8.5-10.1); CREATININE SERUM 1.21 MG/DL (0.60-1.30); POTASSIUM 3.6 MMOL/L (3.6-5.0)
== END ==
LOC: LAB 10:30
PROVIDERS: ATTEND Internal Medicine
DX: E11.9 Type 2 diabetes mellitus without complications (principal)
CPT/HCPCS: 36415; 80048; 83036

== ENCOUNTER → 2023-05-15 | Outpatient (CLI) | payer MEDICARE ==
--- NOTE | 2023-05-15 08:17 | Diagnostic Imaging Report ---
PROCEDURE: CT head without contrast. TECHNIQUE: Multiple contiguous axial images were obtained through the brain without the use of intravenous contrast. Auto Exposure Controls were utilized during the CT exam to meet ALARA standards for radiation dose reduction. INDICATION: Memory loss COMPARISON: CT of the head on 07/30/2022. FINDINGS: No acute intracranial hemorrhage. The stephens-white matter differentiation is preserved. No intracranial mass or fluid collection. No midline shift. The ventricles and cortical sulci are normal. Minimal age-appropriate hypoattenuation within the periventricular and subcortical white matter. No significant volume loss. Subarachnoid spaces are maintained. The sella is normal. There is mucosal thickening within the bilateral maxillary, sphenoid, ethmoid, and frontal sinuses with associated mucoperiosteal reaction. The globes and orbits are normal. Skull is intact. IMPRESSION: No acute intracranial hemorrhage. No large vascular territory beach-white loss. No intracranial mass, midline shift, or hydrocephalus.. Diffuse pansinus mucosal thickening with associated mucoperiosteal reaction concerning for sinusitis. Dictated by: Dictated on workstation # [id number]
== END ==
LOC: RAD 05-14 11:48
PROVIDERS: ATTEND Internal Medicine
DX: J34.9 Unspecified disorder of nose and nasal sinuses (principal); R41.3 Other amnesia; Z85.3 Personal history of malignant neoplasm of breast
CPT/HCPCS: 70450

== ENCOUNTER 2023-08-30 00:20 | Emergency (ER) | payer MEDICARE ==
[~2023-08-30] VITALS: Ht 157.5 cm; Wt 61.2 kg
--- NOTE | 2023-08-30 00:42 | ED Respiratory ---
General Chief Complaint: Respiratory Problems Stated Complaint: ASTHMA ATTACH Source: patient (LIMITED HISTORIAN--SON STATES SHE HAS SOME DEMENTIA), family (SON) History of Present Illness Date Seen by Provider: Aug 30, 2023 Time Seen by Provider: 00:30 Initial Comments PT ARRIVES VIA POV FROM HOME WITH SON--PT LIVES ALONE C/O ASTHMA PT STATES SHE USES ALBUTEROL INHALER EVERY DAY, AND RAN OUT ON Thursday08/28/23. SHE STATES SHE CALLED DR. DONOHUE'S OFFICE ON THURSDAY BECAUSE SHE DID NOT HAVE ANY REFILLS, AND THEN THE PHARMACY WAS CLOSED BY THE TIME SHE GOT THERE ON THURSDAY SHE HAS NOT ATTEMPTED TO GO THERE SINCE THEN NO FEVER NO CHEST PAIN NO OTHER SYMPTOMS PT DOES NOT SMOKE NO KNOWN ALLERGEN EXPOSURE, DOES NOT HAVE ANIMALS SHE STATES SHE DOES NOT USE ANY OTHER INHALERS OR NEBULIZER--ONLY ALBUTEROL INHALER, AND DOES NOT HAVE A SPACER PCP: DR. DONOHUE Allergies and Home Medications Allergies Coded Allergies: azithromycin (Unverified Allergy, Mild, HIVES, 01/04/11) codeine (Unverified Allergy, Unknown, N/V, 02/01/15) procaine (Unverified Allergy, Unknown, RASH, 02/01/15) strawberry (Unverified Allergy, Unknown, RASH, 02/01/15) Patient Home Medication List Home Medication List Reviewed: Yes Albuterol (Proventil) 17 Gm Inh, 2 SPRAY IH NEEDED, (Reported) Entered as Reported by: RAKESH MIXON on 08/30/10 155 Budesonide (Pulmicort Flexhaler) 180 Mcg Aer.pow.ba, 180 MCG IH BID Prescribed by: NISREEN CADET on 08/30/23117 Cetirizine Hcl (Zyrtec) 10 Mg Capsule, 10 MG PO DAILY, (Reported) Entered as Reported by: RAKESH MIXON on 08/30/10 155 Cholecalciferol (Vitamin D) 1,000 Unit Tablet, 1,000 UNIT PO DAILY, (Reported) Entered as Reported by: RAKESH MIXON on 08/30/101542 Dexamethasone (Dexamethasone) 6 Mg Tablet, 6 MG PO DAILY Prescribed by: NISREEN CADET on 08/30/23117 Fluticasone Propionate (Flonase Nasal Steen) 16 Gm Naspr, 2 SPRAYS NS DAILY, (Reported) Entered as Reported by: RAKESH MIXON on 08/30/10 1543 Fluticasone/Salmeterol (Advair Hfa 115-21 Mcg Inhaler) 12 Gm Aer.w.adap, 2 PUFF IH BID, (Reported) Entered as Reported by: RAKESH MIXON on 08/30/10 1543 Hydrocodone Bit/Acetaminophen (Hydrocodone-Apap 5-325 Tablet) 1 Tab Tablet, 1-2 TAB PO Q6H PRN for PAIN Prescribed by: SUMMER BAH on 03/03/15 1525 Multivitamins (Multiple Vitamin) 1 Tab Tablet, 1 TAB PO DAILY, (Reported) Entered as Reported by: RAKESH MIXON on 08/30/10 1543 Omeprazole (Omeprazole) 20 Mg Tablet.dr, 20 MG PO DAILY, (Reported) Entered as Reported by: RAKESH MIXON on 08/30/10 1555 Tramadol Hcl (Ultram) 50 Mg Tablet, 100 MG PO Q12H Prescribed by: LESLEY SHI on 02/01/15 1342 Review of Systems Review of Systems Constitutional: no symptoms reported EENTM: no symptoms reported Respiratory: see HPI, short of breath, wheezing Cardiovascular: no symptoms reported Gastrointestinal: no symptoms reported Genitourinary: no symptoms reported Musculoskeletal: no symptoms reported Skin: no symptoms reported Psychiatric/Neurological: No Symptoms Reported Hematologic/Lymphatic: No Symptoms Reported Immunological/Allergic: no symptoms reported Past Ebekgdq-Swhlcm-Nigkel Hx Patient Social History Tobacco Use?: No Smoking Status: Never a Smoker Use of E-Cig and/or Vaping dev: No Use of E-Cig and/or Vaping Andrea: Never a User Substance use?: No Alcohol Use?: No Past Medical History Surgery/Hospitalization HX: ASTHMA Surgeries: Yes (MODIFIED RIGHT MASTECTOMY; LEFT BREAST LUMPECTOMY) Breast Respiratory: Yes Asthma Cardiac: No Neurological: Yes Dementia Reproductive Disorders: No Female 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 oz. 76.430832wc; BMI Method:Stated General Appearance: WD/WN, no apparent distress, thin HEENT: normal ENT inspection Neck: normal inspection Respiratory: no respiratory distress, no accessory muscle use, wheezing (DIFFUSE EXPIRATORY WHEEZING BILATERALLY) Cardiovascular: regular rate, rhythm, no edema, no JVD, no murmur Gastrointestinal: non tender, soft Extremities: normal inspection, normal capillary refill Neurologic/Psychiatric: no motor/sensory deficits, alert, normal mood/affect, oriented x 3 (BUT LIMITED MEMORY) Skin: normal color (PT IS BLACK), warm/dry Progress/Results/Core Measures Suspected Sepsis SIRS Temperature: Pulse: Respiratory Rate: Laboratory Tests 08/30/23 00:31: White Blood Count 8.8 Blood Pressure / Mean: Laboratory Tests 08/30/23 00:31: Creatinine 0.87, INR Comment 1.0, Platelet Count 279, Total Bilirubin 0.5 Results/Orders Lab Results Laboratory Tests Test 08/30/23 00:31 Range/Units White Blood Count 8.8 4.3-11.0 10^3/uL Red Blood Count 4.06 3.80-5.11 10^6/uL Hemoglobin 11.5 11.5-16.0 g/dL Hematocrit 35 35-52 % Mean Corpuscular Volume 87 80-99 fL Mean Corpuscular Hemoglobin 28 25-34 pg Mean Corpuscular Hemoglobin Concent 33 32-36 g/dL Red Cell Distribution Width 14.1 10.0-14.5 % Platelet Count 279 130-400 10^3/uL Mean Platelet Volume 10.0 9.0-12.2 fL Immature Granulocyte % (Auto) 0 % Neutrophils (%) (Auto) 58 42-75 % Lymphocytes (%) (Auto) 26 12-44 % Monocytes (%) (Auto) 9 0-12 % Eosinophils (%) (Auto) 5 0-10 % Basophils (%) (Auto) 1 0-10 % Neutrophils # (Auto) 5.1 1.8-7.8 10^3/uL Lymphocytes # (Auto) 2.3 1.0-4.0 10^3/uL Monocytes # (Auto) 0.8 0.0-1.0 10^3/uL Eosinophils # (Auto) 0.5 H 0.0-0.3 10^3/uL Basophils # (Auto) 0.1 0.0-0.1 10^3/uL Immature Granulocyte # (Auto) 0.0 0.0-0.1 10^3/uL Prothrombin Time 13.5 12.2-14.7 SEC INR Comment 1.0 0.8-1.4 Activated Partial Thromboplast Time 31 24-35 SEC Sodium Level 143 135-145 MMOL/L Potassium Level 2.7 L 3.6-5.0 MMOL/L Chloride Level 108 H 98-107 MMOL/L Carbon Dioxide Level 22 21-32 MMOL/L Anion Gap 13 5-14 MMOL/L Blood Urea Nitrogen 16 7-18 MG/DL Creatinine 0.87 0.60-1.30 MG/DL Estimat Glomerular Filtration Rate 66 BUN/Creatinine Ratio 18 Glucose Level 104 70-105 MG/DL Calcium Level 8.6 8.5-10.1 MG/DL Corrected Calcium 9.1 8.5-10.1 MG/DL Magnesium Level 1.6 1.6-2.4 MG/DL Total Bilirubin 0.5 0.1-1.0 MG/DL Aspartate Amino Transf (AST/SGOT) 18 5-34 U/L Alanine Aminotransferase (ALT/SGPT) 12 0-55 U/L Alkaline Phosphatase 84 40-136 U/L Troponin I < 0.028 <0.028 NG/ML B-Type Natriuretic Peptide 347.5 H <100.0 PG/ML Total Protein 7.0 6.4-8.2 GM/DL Albumin 3.4 3.2-4.5 GM/DL Influenza Type A (RT-PCR) Not Detected Not Detecte Influenza Type B (RT-PCR) Not Detected Not Detecte SARS-CoV-2 RNA (RT-PCR) Detected H Not Detecte My Orders Orders - NISREEN CADET DO Ed Iv/Invasive Line Start (08/30/23 00:34) Monitor-Rhythm Ecg Trace Only (08/30/23 00:34) Chest 1 View, Ap/Pa Only (08/30/23:34) Bnp [place] (08/30/23:34) Cbc And Automated Diff (08/30/23:34) Comprehensive Metabolic Panel (08/30/23:34) Magnesium (10/29/23 00:34) Protime With Inr (08/30/23 00:34) Partial Thromboplastin Time (08/30/23 00:34) Troponin I [place] (08/30/23 00:34) Covid 19 Inhouse Test (08/30/23 00:34) Ipratropium/Albuterol Inh Soln (Ipratrop (08/30/23 00:45) Budesonide Inhalation Solution (Budesoni (08/30/23 00:45) Rt Request For Service (08/30/23 00:34) Influenza A And B By Pcr (08/30/23 00:34) Svn Small Volume Nebulizer (08/30/23 00:34) Svn Small Volume Nebulizer (08/30/23 00:34) Rx-Nirmatrelvir/Ritonavir(Eua) (Rx-Paxlo (08/30/23 01:15) Potassium Chloride (Tablet) (Potassium C (08/30/23 01:15) Dexamethasone Injection (Dexamethasone (08/30/23 01:15) Rx-Albuterol Inhaler (Rx-Ventolin Hfa In (08/30/23 01:11) Medications Given in ED Current Medications Medications Dose Ordered Sig/Luis Route Start Time Stop Time Status Last Admin Dose Admin Albuterol/ Ipratropium 3 ml ONCE ONCE INH 08/30/23 00:45 08/30/23 00:46 DC 08/30/23 00:42 3 ML Budesonide 0.5 mg ONCE ONCE INH 08/30/23 00:45 08/30/23 00:46 DC 08/30/23 00:42 0.5 MG Dexamethasone Sodium Phosphate 10 mg ONCE ONCE IV 08/30/23 01:15 08/30/23 01:16 DC 08/30/23 01:24 10 MG Potassium Chloride 40 meq ONCE ONCE PO 08/30/23 01:15 08/30/23 01:16 DC 08/30/23 01:25 40 MEQ Vital Signs/I&O 08/30/23 08/30/23 08/30/23 08/30/23 00:25 00:25 00:43 00:53 Temp 36.0 Pulse 81 Resp 28 B/P (MAP) 161/83 (109) Pulse Ox 94 96 94 O2 Delivery Room Air Room Air Room Air Room Air 08/30/23 01:32 Pulse 63 Resp 18 B/P (MAP) 109/75 Pulse Ox 96 O2 Delivery Room Air Capillary Refill : Progress Note : Progress Note VITALS ON ARRIVAL GIVEN: -NEB TREATMENTS -DECADRON IV LABS: -CBC NORMAL IWTH WBC 8.8 -CMP WITH NA 143, K 2.7, OTHERWISE NORMAL -BNP 347.5 -TROPONIN NEGATIVE -PT/PTT/INR NORMAL. -COVID/FLU--COVID +, FLU NEGATIVE CXR-UNREMARKABLE, PENDING RADIOLOGIST REVIEW FEELS MUCH BETTER AFTER NEB TREATMENT, LUNGS CLEAR AFTER TREATMENT PT SENT HOME WITH PAXLOVID, ALBUTEROL INHALER AND SPACER AND SPACER TEACHING DONE. DISCUSSED TEST RESULTS, ANTICIPATED COURSE, SYMPTOMATIC TREATMENT, MEDICATIONS, NEED FOR QUARANTINE, NEED FOR FOLLOW UP AND RETURN PRECAUTIONS. REVIEWED PRIOR RECORDS--FEW ER VISITS, AND OUTPATIENT PROCEDURES. Diagnostic Imaging Comments CXR--NO ACUTE PROCESS, PENDING RADIOLOGIST REVIEW Reviewed: Reviewed by Me Departure Impression Primary Impression: COVID-19 virus infection Additional Impressions: Asthma Hypokalemia Disposition: HOME, SELF-CARE Condition: Improved Departure-Patient Inst. Decision time for Depature: 01:13 Referrals: LOPEZ DONOHUE MD (PCP/Family) Primary Care Physician Patient Instructions: COVID-19 (DC), Nirmatrelvir and Ritonavir FDA Fact Sheet, Preventing the Spread of an Infectious Disease, High Potassium Diet, Hypokalemia (DC) Add. Discharge Instructions: USE YOUR ALBUTEROL INHALER WITH SPACER AT ALL TIMES--2 PUFFS EVERY 4 HOURS NEEDED YOU MAY TAKE TYLENOL AND MOTRIN NEEDED FOR PAIN OR FEVER OVER THE COUNTER MUCINEX DM FOR COUGH LOTS OF FLUIDS USE THE PULMICORT ( BUDESONIDE ) INHALER TWICE A DAY EVERY DAY TAKE PAXLOVID INSTRUCTED FOR COVID FOLLOW UP WITH DR. DONOHUE THIS WEEK FOR FURTHER CARE RETURN TO ER IF SYMPTOMS WORSEN QUARANTINE FOR 10 DAYS All discharge instructions reviewed with patient and/or family. Voiced understanding. Scripts Budesonide (Pulmicort Flexhaler) 180 Mcg Aer.pow.ba 180 MCG IH BID, #1 EACH Prov: NISREEN CADET DO 08/30/23 Dexamethasone (Dexamethasone) 6 Mg Tablet 6 MG PO DAILY, #10 TAB Prov: NISREEN CADET DO 08/30/23 NISREEN CADET DO Aug 30, 2023 00:42
[2023-08-30 00:43] LABS: BASOPHILS # (AUTO) 0.1 10^3/uL (0.0-0.1); BASOPHILS % (AUTO) 1 % (0-10); EOSINOPHILS # (AUTO) 0.5 10^3/uL (0.0-0.3); EOSINOPHILS % (AUTO) 5 % (0-10); HEMATOCRIT 35 % (35-52); HEMOGLOBIN 11.5 g/dL (11.5-16.0); LYMPHOCYTES # (AUTO) 2.3 10^3/uL (1.0-4.0); LYMPHOCYTES % (AUTO) 26 % (12-44); MEAN CORPUSCULAR HEMOGLOBIN 28 pg (25-34); MEAN CORPUSCULAR HGB CONC 33 g/dL (32-36); MEAN CORPUSCULAR VOLUME 87 fL (80-99); MONOCYTES # (AUTO) 0.8 10^3/uL (0.0-1.0); MONOCYTES % (AUTO) 9 % (0-12); NEUTROPHILS # (AUTO) 5.1 10^3/uL (1.8-7.8); NEUTROPHILS % (AUTO) 58 % (42-75); PLATELET COUNT 279 10^3/uL (130-400); WHITE BLOOD COUNT 8.8 10^3/uL (4.3-11.0)
[2023-08-30] MEDS ORDERED: RT-BUDESONIDE NEBS 0.5 MG/2ML VIAL INH ONE (00:45)
[2023-08-30] MEDS ORDERED: RT-Ipratropium/Albuterol NEB 3 ML VIAL INH ONE (00:45)
[2023-08-30 00:48] LABS: PROTHROMBIN TIME PATIENT 13.5 SEC (12.2-14.7)
[2023-08-30 00:50] LABS: ALBUMIN 3.4 GM/DL (3.2-4.5); CHLORIDE 108 MMOL/L (98-107); POTASSIUM 2.7 MMOL/L (3.6-5.0); SODIUM 143 MMOL/L (135-145)
[2023-08-30 00:51] LABS: CALCIUM 8.6 MG/DL (8.5-10.1)
[2023-08-30 00:52] LABS: GLUCOSE 104 MG/DL (70-105)
[2023-08-30 00:53] LABS: CARBON DIOXIDE 22 MMOL/L (21-32)
[2023-08-30 00:54] LABS: BILIRUBIN,TOTAL 0.5 MG/DL (0.1-1.0)
[2023-08-30 00:56] LABS: ALKALINE PHOSPHATASE 84 U/L (40-136); CREATININE SERUM 0.87 MG/DL (0.60-1.30); GFR ESTIMATED 66
[2023-08-30 00:57] LABS: BUN/CREATININE RATIO 18
[2023-08-30 00:59] LABS: ALANINE AMINOTRANSFERASE 12 U/L (0-55); MAGNESIUM 1.6 MG/DL (1.6-2.4)
[2023-08-30] MEDS ORDERED: RX-ALBUTEROL INHALER 8.5 GM HFA (PROAIR) IH STA (01:11)
[2023-08-30] MEDS ORDERED: dexAMETHasone INJ 10 MG/ML 1 ML VIAL IV ONE (01:15)
[2023-08-30] MEDS ORDERED: RX-NIRMATRELVIR/RITONAVIR (PAXLOVID) #30 TABS PO SCH (01:15)
[2023-08-30] MEDS ORDERED: POTASSIUM CHLORIDE 10 MEQ TABLET PO ONE (01:15)
[2023-08-30] MEDS ORDERED: BUDE180A IH (01:18)
[2023-08-30] MEDS ORDERED: DEXA6TAB PO (01:18)
[2023-08-30 01:32] VITALS: BP 109/75
--- NOTE | 2023-08-30 07:52 | Diagnostic Imaging Report ---
EXAMINATION: Chest 1 view HISTORY: Wheezing. COMPARISON: None available. FINDINGS: The lung volumes are normal. No focal consolidation is seen. No large pleural effusion or pneumothorax is seen. The cardiomediastinal silhouette is normal in size and contour. No acute osseous abnormality is seen. Skin delphine are seen overlying the left lung base. IMPRESSION: 1. No acute pleuroparenchymal process. Dictated by: Dictated on workstation # [id number]
== END 2023-08-30 01:32 | disposition home or self-care (01) ==
LOC: EDUNIT# 00:20 → ER 00:22
DX: U07.1 COVID-19 (principal); J45.909 Unspecified asthma, uncomplicated; E87.6 Hypokalemia; Z79.51 Long term (current) use of inhaled steroids
CPT/HCPCS: 36415; 71045; 80053; 83735; 83880; 84484; 85025; 85027; 85610; 85730; 87636; 93041; 94640; 96374